=== PATIENT | male | born 1980 | race Caucasian/White ===

== ENCOUNTER 2024-02-12 08:24 | Emergency (ER) | payer BC, OTHER ==
[2024-02-12 10:35] LABS: Bacteria/HPF None Seen HPF (None Seen); Bilirubin Negative (Negative); Blood, Urine 3+ (Negative); CAUTI Indications for Culture Dysuria,urgency,freq; Clarity Clear (Clear); Glucose, Urine (Dipstick) Normal (Negative); Ketone, Urine Negative (Negative); Leukocyte Negative Leu/uL (Negative); Nitrite Negative (Negative); Protein, Urine (Dipstick) 50 mg/dL (Neg-Trace); Specific Gravity, Urine 1.019 (1.002-1.036); Squamous Epithelial None Seen HPF (0-3); Urobilinogen Normal mg/dL (Less than 2); WBC/HPF 0-3 HPF (0-3)
[2024-02-12 10:39] LABS: Urine Culture Reflex No No
== END 2024-02-12 10:57 | disposition home or self-care (01) ==
LOC: ERS 08:24
DX: N43.3 Hydrocele, unspecified (principal); I86.1 Scrotal varices; F17.210 Nicotine dependence, cigarettes, uncomplicated; Z55.6 Problems related to health literacy
CPT/HCPCS: 76870; 81001; 93976